=== PATIENT | male | born 1965 | race Caucasian/White ===

== ENCOUNTER 2019-06-25 08:45 | Outpatient (RCR) | payer OTHER, SELFPAY ==
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
--- NOTE | 2019-06-02 11:22 | PCPTNOTE ---
Patient called & cancelled scheduled appointment this date stating he was unable to make it.
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
--- NOTE | 2019-07-03 18:02 | PCPTNOTE ---
Patient did not show up for scheduled appointment this date. Called patient to establish appt times. Did not speak with patient directly.
--- NOTE | 2019-07-09 14:30 | PCPTNOTE ---
Patient did not show up for scheduled appointment this date, called registered phone number letting roommate know about missed appointment and when he's next appointment is scheduled.
--- NOTE | 2019-07-16 10:23 | PCPTNOTE ---
Patient did not show up for scheduled appointment this date. Per attendance policy, patient will be discharged.
--- NOTE | 2019-07-16 10:23 | PCPTNOTE ---
PHYSICAL THERAPY DISCHARGE NOTE Attending Provider: Viviana Storm, Patient:Anderson Byrd Jr. Date of :1965 Patient has not returned for any further treatments since 06/25/2019, therefore he will be discharged from therapy at this time. His last re-evaluation was on 06/25/2019. He participated in 8 physical therapy visits prior to 06/25/2019 and has since no showed 3 appointments. The goals have been partially achieved. Thank you for referring this patient to [facility]. Please review, sign, date and return this discharge summary NAHUM. I have been updated about the patient's current status and I agree with discharge from the above service at this time. Referring Physician Date
== END 2019-07-16 12:19 | disposition home or self-care (01) ==
LOC: ANHPT 08:45
PROVIDERS: Visit Provider Family Medicine
DX: M54.2 Cervicalgia (principal)
CPT/HCPCS: 97014; 97110; 97140; 97162; G0283

== ENCOUNTER 2019-12-10 11:09 | Outpatient (CLI) | payer OTHER, SELFPAY ==
--- NOTE | ~2019-12-10 | XR_ITS ---
EXAMINATION: XR lumbar spine 2-3V EXAM DATE: 12/10/2019 11:48 INDICATION: Chronic low back pain. TECHNIQUE: Lumber spine frontal, lateral, lateral L5-S1 projections for interpretation. Comparison is made to prior examination from 03/30/2015. FINDINGS: There is minimal thoracic disc disease from L3 through S1. There is mild to moderate mid a nd lower lumbar facet arthropathy. No endplate erosive change. No spondylolysis. The vertebral bodies are aligned in the AP dimension. Vertebral body heights are maintained. Sacrum, sacroiliac joints, s acral arcuate lines are intact. Paraspinal soft tissue is unremarkable. IMPRESSION: 1. Mild to moderate lumbar facet arthropathy. 2. Mild disc disease. Reviewed, dictated and finalized at location A.
--- NOTE | ~2019-12-10 | XR_ITS ---
EXAMINATION: XR thoracic spine 3V EXAM DATE: 12/10/2019 11:47 INDICATION: Thoracic pain. TECHNIQUE: Frontal and lateral projections of the thoracic spine as well as lateral swimmers projecti on of the upper thoracic spine for interpretation. Comparison is made to prior examination from 03/30. FINDINGS: There is mild mid and lower thoracic disc disease. No endplate erosive change. The vertebr al bodies are aligned in the AP dimension. Paraspinal soft tissue is unremarkable. IMPRESSION: Mild thoracic disc disease. Reviewed, dictated and finalized at location A. IMPRESSION: Mild thoracic disc disease.
--- NOTE | ~2019-12-10 | XR_ITS ---
EXAMINATION: XR_CERV2-3V_CR EXAM DATE: 12/10/2019 11:47 INDICATION: Chronic back pain, chronic neck pain. TECHNIQUE: Cervical spine frontal, lateral, open-mouth odontoid projections. There is no prior stud y for comparison. FINDINGS: Mild midcervical disc disease. The vertebral body and disc heights are otherwise well maint ained. The vertebral bodies are aligned in the AP dimension. Mild to moderate cervical facet and unco vertebral joint arthropathy. There may be some neural foraminal stenosis at C6-7. The odontoid proces s is intact. The lateral masses of C1 line up with C2. Prevertebral soft tissue and pre-dens space a re within normal limits. Lung apices unremarkable. IMPRESSION: Mild cervical disc disease, mild to moderate arthropathy. Reviewed, dictated and finalized at location A.
== END 2019-12-10 11:10 | disposition home or self-care (01) ==
LOC: ANHIMG 11:20
PROVIDERS: PCP Family Medicine; Visit Provider Family Medicine
DX: M51.36 Other intervertebral disc degeneration, lumbar region (principal); M51.34 Other intervertebral disc degeneration, thoracic region; M50.30 Other cervical disc degeneration, unspecified cervical region
CPT/HCPCS: 72040; 72072; 72100

== ENCOUNTER 2020-04-23 07:05 | Outpatient (NON) | payer OTHER, SELFPAY ==
[2020-04-24 00:19] LABS: SARS-CoV-2 RNA PCR Negative
== END 2020-04-23 07:06 ==
LOC: ANHCOVIDDT 07:29
PROVIDERS: PCP Family Medicine; Visit Provider Family Medicine
DX: Z20.828 Contact with and (suspected) exposure to other viral communicable diseases (principal); R09.89 Other specified symptoms and signs involving the circulatory and respiratory systems
CPT/HCPCS: 87635; C9803; U0003

== ENCOUNTER 2020-07-21 10:13 | Outpatient (CLI) | payer OTHER, SELFPAY ==
--- NOTE | ~2020-07-21 | XR_ITS ---
EXAMINATION: XR_CERV2-3V_CR EXAM DATE: 07/21/2020 10:30 INDICATION: Chronic neck pain, pain down right arm. TECHNIQUE: Cervical spine frontal, lateral, lateral swimmers, and open-mouth odontoid projections. C omparison is made to prior examination from 12/10/2019. FINDINGS: Mild diffuse cervical disc disease. The vertebral bodies are aligned in the AP dimension. Vertebral body heights are maintained. The odontoid process is intact. The lateral masses of C1 line up with C2. Prevertebral soft tissue and pre-dens space are within normal limits. There is mild cerv icothoracic levoscoliosis. Evidence of mild to moderate cervical arthropathy, causing some lower cerv ical neural foraminal stenosis. Lung apices unremarkable. The soft tissue is unremarkable. IMPRESSION: 1. Mild to moderate cervical arthropathy, mild disc disease. 2. Mild cervicothoracic levoscoliosis. Reviewed, dictated and finalized at location A. CAL DOSIMETRIST
== END 2020-07-21 10:14 | disposition home or self-care (01) ==
LOC: ANHIMG 10:17
PROVIDERS: PCP Family Medicine; Visit Provider Family Medicine
DX: M54.2 Cervicalgia (principal); M47.812 Spondylosis without myelopathy or radiculopathy, cervical region; M50.90 Cervical disc disorder, unspecified, unspecified cervical region; M41.83 Other forms of scoliosis, cervicothoracic region
CPT/HCPCS: 72040

== ENCOUNTER 2021-02-23 09:59 | Outpatient (CLI) | payer OTHER, SELFPAY ==
--- NOTE | 2021-02-23 11:00 | NEURO_ITS ---
PATIENT NUMBER: [id number] IMPRESSION: # Complains of right upper extremity pain and numbness. # No Carpal tunnel syndrome. # Normal needle exam. # Clinical correlation is recommended. Higher involvement needs to be ruled out. Nerve Conduction Studies Anti Sensory Summary Table Stim Site NR Peak (ms) P-T Amp (?V) Site1 Site2 Delta-P (ms) Dist (cm) Cornelius (m/s) Right Median Anti Sensory (2-3nd Digit) Wrist 3.4 26.2 Wrist 2-3nd Digit 3.4 14.0 41 Wrist 3.2 25.9 Wrist 2-3nd Digit 3.4 14.0 41 Right Radial Anti Sensory (Base 1st Digit) Wrist 2.2 10.0 Wrist Base 1st Digit 2.2 0.0 Right Ulnar Anti Sensory (5th Digit) Wrist 2.8 89.3 Wrist 5th Digit 2.8 14.0 50 Motor Summary Table Stim Site NR Onset (ms) O-P Amp (mV) Site1 Site2 Delta-0 (ms) Dist (cm) Cornelius (m/s) Right Median Motor (Abd Poll Brev) Wrist 3.1 6.1 Elbow Wrist 5.5 30.0 55 Elbow 8.6 4.1 Right Ulnar Motor (Abd Dig Minimi) Wrist 2.7 5.9 A Elbow Wrist 5.3 31.0 58 A Elbow 8.0 4.5 F Wave Studies NR F-Lat (ms) L-R F-Lat (ms) Right Median (Mrkrs) (Abd Poll Brev) 29.69 Right Ulnar (Mrkrs) (Abd Dig Min) 29.61 EMG Side Muscle Nerve Root Ins Act Fibs Amp Dur Recrt Comment Right 1stDorInt Ulnar C8-T1 Nml Nml Nml Nml Nml Right Ext Indicis Radial (Post Int) C7-8 Nml Nml Nml Nml Nml Right Ext Digitorum Radial (Post Int) C7-8 Nml Nml Nml Nml Nml Right BrachioRad Radial C5-6 Nml Nml Nml Nml Nml Right PronatorTeres Median C6-7 Nml Nml Nml Nml Nml Right Abd Poll Brev Median C8-T1 Nml Nml Nml Nml Nml Right Deltoid Axillary C5-6 Nml Nml Nml Nml Nml Right Triceps Radial C6-7-8 Nml Nml Nml Nml Nml Right Abd Poll Long Radial (Post Int) C7-8 Nml Nml Nml Nml Nml Right ABD Dig Min Ulnar C8-T1 Nml Nml Nml Nml Nml Right Biceps Musculocut C5-6 Nml Nml Nml Nml Nml MTDD
== END 2021-02-23 10:00 | disposition home or self-care (01) ==
PROVIDERS: PCP Family Medicine; Visit Provider Family Medicine
DX: R20.0 Anesthesia of skin (principal); R20.2 Paresthesia of skin; M54.2 Cervicalgia
CPT/HCPCS: 95886; 95909

== ENCOUNTER 2022-07-06 00:16 | Observation (INO) | payer OTHER, SELFPAY ==
[2022-07-06] VITALS (29 sets, daily range): BP systolic 110–212; BP diastolic 63–112; PULSE 42–71; RESP 10–19; TEMP 35.7–36.6; O2SAT 93–100; BMI 27.1
--- NOTE | ~2022-07-06 | CT_ITS ---
EXAMINATION: CT abdomen pelvis w con DATE: 07/06/2022 01:48 INDICATION: Right upper quadrant abdominal pain. TECHNIQUE: Computed tomography (CT) of the abdomen and pelvis was performed with 100 mL Omnipaque 350 intravenous contrast. Automated exposure control and iterative reconstruction technique were employe d. The dose-length product was 596.58 mGy-cm. COMPARISON: None. FINDINGS: The visualized portions of the lung bases demonstrate mild atelectasis. No pleural effusion . The heart size is normal. No pericardial effusion. There is wall thickening of the distal esophagus . The liver is normal. The gallbladder is normal in size. Gallbladder wall thickening is noted. The s pleen, pancreas, adrenal glands, and kidneys are normal. There is diverticulosis of the colon without evidence of diverticulitis. The appendix is normal. There are no dilated loops of bowel. There are n o pathologically enlarged lymph nodes. There is no free intraperitoneal fluid. There is a short disse ction in the left common iliac artery. There is mild thoracolumbar spondylosis. There is mild chronic anterior wedging of multiple thoracic vertebral bodies. IMPRESSION: 1. Gallbladder wall thickening. This finding may be seen with acute or chronic cholecystitis, interst itial edema, or chronic liver disease. 2. Wall thickening of the distal esophagus, likely esophagitis. Reviewed, dictated and finalized at location A. S FINISHER IMPRESSION: 1. Gallbladder wall thickening. This finding may be seen with acute or chronic cholecystitis, interstitial edema, or chronic liver disease. 2. Wall thickening of the distal esophagus, likely esophagitis.
--- NOTE | 2022-07-06 00:36 | ECG_ITS ---
Measurements Intervals [place] Rate: 47 P: 54 IA: 166 QRS: 11 QRSD: 88 T: 34 QT: 437 QTc: 390 Interpretive Statements SINUS BRADYCARDIA NO PREVIOUS ECG AVAILABLE FOR COMPARISON Electronically Signed On 07-06-2022 14:52:14 CMO by Joaquina Amaral M.D.
[2022-07-06] MEDS: SODIUM CHLORIDE 0.9% IV 1,000 ML 999 ML IV CONT (01:09)
--- NOTE | 2022-07-06 01:12 | ED.ABDPAIN ---
HPI - Abdominal Pain General Chief Complaint: Abdominal Pain <VIJAYA Magdaleno Last Filed: 07/06/22 04:59> Stated Complaint: ABD Pain <VIJAYA Magdaleno Last Filed: 07/06/22 04:59> Time Seen by Provider: 07/06/22 00:38 <VIJAYA Magdaleno Last Filed: 07/06/22 04:59> Source: patient <VIJAYA Magdaleno Last Filed: 07/06/22 04:59> Mode of arrival: ambulatory <VIJAYA Magdaleno Last Filed: 07/06/22 04:59> Limitations: no limitations <VIJAYA Magdaleno Last Filed: 07/06/22 04:59> History of Present Illness HPI narrative: Patient is a 56 y/o male who presents to the ED via EMS with report of right upper quadrant abdominal pain. Patient reports he went golfing yesterday morning and felt fine. He developed pain in his right upper quadrant around noon after eating a few chocolate chip cookies. He felt like he needed to belch or pass gas. He took Tums, Pepto-Bismol without relief. He did not try any Tylenol or ibuprofen. Pain persisted and woke him up from sleep, which prompted his presentation. No radiation of pain. He does report some nausea, but denies vomiting, diarrhea, constipation, rectal bleeding, fevers, urinary symptoms, chest pain, pleuritic pain, difficulty breathing. He has never had pain like this before. <VIJAYA Magdaleno Last Filed: 07/06/22 04:59> Related Data Allergies/Adverse Reactions: Allergies Allergy/AdvReac Type Severity Reaction Status Date / Time No Known Allergies Allergy Verified 07/06/22 08:16 <VIJAYA Magdaleno Last Filed: 07/06/22 04:59> Review of Systems Review of Systems: CONSTITUTIONAL: Denies fever, chills, or sweats. CARDIOVASCULAR: Denies chest pain. RESPIRATORY: Denies dyspnea. GASTROINTESTINAL: See HPI. GENITOURINARY: Denies dysuria or hematuria. <Arabella Alcantara PA-C Last Filed: 07/06/22 04:59> All systems reviewed & are unremarkable except as noted in HPI and below <Arabella Alcantara PA-C Last Filed: 07/06/22 04:59> PMFSH Past Medical History Medical History: Medical History Acute cholecystitis Iliac dissection No pertinent past medical history Overweight (BMI 25.0-29.9) Smoker <Arabella Alcantara PA-C Last Filed: 07/06/22 04:59> Surgical History Surgical History: Surgical History No pertinent past surgical history <Arabella Alcantara PA-C Last Filed: 07/06/22 04:59> Family History Family History: Family History Father Cancer Sibling Parkinsons <Arabella Alcantara PA-C Last Filed: 07/06/22 04:59> Social History Social History: Social History Smoking packs per day: 1 Smoking cigarettes per day: 20.0 Smoking status: Current every day smoker Tobacco type: cigarettes Alcohol intake: current Drinks per week: 3 Substance use: current Substance use type: marijuana Lack of Transportation: No Lack of Food: Never True Current Housing: I Have Housing Concerned About Future Housing: No Difficulty Paying Gas/Electric Bills: No Difficulty Paying for Meds: No Currently Unemployed: No Education: High School Diploma/GED Difficulty w/ Childcare or Family Care: No Spiritual care concerns: No <VIJAYA Magdaleno Last Filed: 07/06/22 04:59> Exam Narrative: GENERAL: Well appearing, well-nourished, non-toxic, in no acute distress. HEAD: Normocephalic, atraumatic. NECK: Supple. No adenopathy, no masses. RESPIRATORY: Airway patent, respirations nonlabored. Clear to auscultation bilaterally, no rales, rhonchi, wheezing. CARDIOVASCULAR: Regular rate and rhythm without murmurs, rubs, or gallops. Peripheral pulses 2+ and equal bilaterally. ABDOMINAL: Soft, focal tenderness in right upper quadrant. No
[2022-07-06 01:17] LABS: Basophils Absolute Auto 0.1 K/mm3 (0.0-0.1); Basophils Percent Auto 0.9 % (0.2-1.2); Eosinophils Absolute Auto 0.5 K/mm3 (0-0.3); Eosinophils Percent Auto 4.6 % (0-4.4); Hematocrit 43.6 % (42.0-52.0); Hemoglobin 14.7 g/dL (14.0-18.0); Immature Granulocyte Absolute 0.03 K/mm3 (0.00-0.031); Immature Granulocyte Percent A 0.3 % (0-0.5); Lymphocytes Absolute Auto 4.02 K/mm3 (0.9-3.2); Lymphocytes Percent Auto 36.9 % (18.3-44.2); Mean Corpuscular HGB Conc 33.7 g/dl (32-36); Mean Corpuscular Hemoglobin 30.9 pg (26-34); Mean Corpuscular Volume 91.6 fl (80-100); Mean Platelet Volume 10.5 fl (7.4-10.4); Monocytes Percent Auto 9.5 % (2.6-8.5); Neutrophils Absolute Auto 5.2 K/mm3 (1.3-6.7); Neutrophils Percent Auto 47.8 % (45.5-73.1); Platelet Count Result 291 k/mm3 (150-375); Red Blood Count 4.76 M/mm3 (4.6-6.20); Red Cell Distribution Width 12.2 % (11.5-14.5); White Blood Count 10.9 K/mm3 (4.5-10.0)
[2022-07-06 01:28] LABS: Lipase 97 U/L (23-300)
[2022-07-06 01:29] LABS: Mucus Urine Rare /lpf; RBC Urine 0-2 /hpf (0-2); WBC Urine 0-3 /hpf
[2022-07-06 01:30] LABS: Appearance Urine Clear (Clear); Bilirubin Urine Negative (Negative); Blood Urine Negative (Negative); Color Urine Yellow (Yellow); Glucose Urine UA Negative (Negative); Ketones Urine Negative (Negative); Leukocyte Esterase Ur Negative LEU/UL (Negative); Nitrate Urine Negative (Negative); Protein Urine Negative (Negative); Urobilinogen Urine 0.2 mg/dL (<2.0)
[2022-07-06 01:32] LABS: Add Urine Microscopic? NO
[2022-07-06 01:33] LABS: Alanine Aminotransferase 25 U/L (6-50); Albumin Level 4.9 g/dL (3.5-5.1); Alkaline Phosphatase 75 U/L (38-126); Anion Gap 6 mmol/L (8-16); Aspartate Amino Transferase 28 U/L (17-59); Bilirubin,Total 0.6 mg/dL (0.2-1.3); Blood Urea Nitrogen 13 mg/dL (9-20); Carbon Dioxide 31 mmol/L (22-30); Chloride 101 mmol/L (98-107); Estimated CRCL calculation 59 ml/min; Estimated Glomerular Filt Rate 57; Glucose 106 mg/dL (65-110); Potassium 3.3 mmol/L (3.4-5.0); Sodium 138 mmol/L (137-145)
[2022-07-06] MEDS: ONDANSETRON INJ 4 MG/2 ML VIAL IV PUSH ×2 (02:29→11:18)
[2022-07-06] MEDS: MORPHINE SULFATE (*CRX) 4 MG/ML INJ IV PUSH ×3 (02:30→11:50)
[2022-07-06] MEDS: POTASSIUM CHLORIDE 20 MEQ TABLET 40 MEQ PO (04:27)
[2022-07-06 04:51] LABS: Partial Thromboplastin Time 35.5 SECONDS (22.3-36.8)
[2022-07-06 06:20] LABS: Influenza A QL RT-PCR Negative (Negative); Influenza B QL RT-PCR Negative (Negative); SARS-CoV-2 RNA PCR Negative
--- NOTE | 2022-07-06 06:21 | PC.NURSE ---
Patient arrived on 3 Med-Surg at 05:57
--- NOTE | 2022-07-06 07:38 | PM.IMHP ---
H&P: HPI History of Present Illness Date/Time: 07/06/22 07:38 Chief Complaint: acute cholecystitis Narrative: The pt is a 56 y/o M presenting to ED c/o severe RUQ pain. Pt reports episode started acutely at noon yesterday. Pt reports pain progressively worsened throughout the day and eventually became constant, sharp. Pt reports he could not get comfortable and could not sleep. Pt reports assoc nausea, bloating, cramping, poor appetite. Pt denies previous episodes. Review of Systems Constitutional: Constitutional: Reports as per HPI, Reports anorexia, Denies chills, Denies fatigue, Denies fever(s), Denies lethargy, Denies malaise, Reports poor appetite, Denies weakness, Denies weight gain and Denies weight loss Eyes: Eyes: Reports no additional eye complaints ENT: Reports system reviewed and no additional complaints, except as documented Cardiovascular: Cardiovascular: Reports no additional cardiovascular complaints Respiratory: Respiratory: Reports no additional respiratory complaints Gastrointestinal: Gastrointestinal: Reports as per HPI, Reports abdominal pain, Reports belching, Reports bloating, Reports GI cramping, Reports early satiety, Reports dyspepsia, Reports heartburn, Denies loose stools, Reports nausea, Denies vomiting and Denies hematemesis Genitourinary: Genitourinary: Reports no additional male genitourinary complaints Musculoskeletal: Musculoskeletal: Reports no additional musculoskeletal complaints Integumentary/Breasts: Skin/Breast: Reports system reviewed and no additional complaints, except as docu Neurologic: Reports system reviewed and no additional complaints, except as documented Psychiatric: Psychiatric: Reports no additional psychiatric complaints Endocrine: Endocrine: Reports no additional endocrine complaints Hematologic/Lymphatic: Hematologic/Lymphatic: Reports no additional hematologic/lymphatic complaints Allergic/Immunologic: Allergic/Immunologic: Reports no additional allergic/immunologic complaints [facility] Past Medical History Medical History No pertinent past medical history Surgical History Surgical History No pertinent past surgical history Family History Family History Father Cancer Sibling Parkinsons Social History Social History Smoking packs per day: 1 Smoking cigarettes per day: 20.0 Smoking status: Current every day smoker Tobacco type: cigarettes Alcohol intake: current Drinks per week: 3 Substance use: current Substance use type: marijuana Lack of Transportation: No Lack of Food: Never True Current Housing: I Have Housing Concerned About Future Housing: No Difficulty Paying Gas/Electric Bills: No Difficulty Paying for Meds: No Currently Unemployed: No Education: High School Diploma/GED Difficulty w/ Childcare or Family Care: No Spiritual care concerns: No Meds Home Medications and Allergies Home Medications Medication Instructions Recorded Confirmed Type No Home Medications 07/06/22 07/06/22 History Allergies Allergy/AdvReac Type Severity Reaction Status Date / Time No Known Allergies Allergy Verified 07/06/22 06:11 Vital Signs Vital Signs - 24 hr 07/06/22 00:20 07/06/22 00:36 07/06/22 00:47 Temperature 36.1 C L Pulse Rate 43 L 49 L 49 L Respiratory Rate 16 16 13 Blood Pressure 181/111 H 182/105 H 147/97 H Pulse Oximetry 99 97 96 Oxygen Delivery Room Air 07/06/22 00:48 07/06/22 01:10 07/06/22 01:19 Temperature Pulse Rate 48 L 46 L 46 L Respiratory Rate 15 16 13 Blood Pressure Pulse Oximetry 97 98 96 Oxygen Delivery 07/06/22 01:20 07/06/22 01:21 07/06/22 01:30 Temperature Pulse Rate 52 L 50 L 42 L Respiratory Rate 12 12 15 Blood Pressure 163/9
--- NOTE | 2022-07-06 07:47 | WPDHPUPDATE1 ---
History and Physical Update Update Date/Time: 07/06/22 07:47 History and Physical has been reviewed, including an updated exam of the patient. There are NO changes in the patient's condition. Risks, benefits, and alternatives have been discussed and questions answered. Patient agrees to proceed with procedure.
--- NOTE | 2022-07-06 08:01 | WPDANESEPPF ---
Anes - Initial Pre Proc Eval Procedure: Operation Date: 07/06/22 09:00 Proposed Procedures p Laparoscopic Cholecystectomy - Ary Neri MD Date/Time: 07/06/22 08:01 Surgeon: Ary Neri MD Pre Op Diagnosis: Acute Cholecystitis Patient Data Age: 56 Gender: M Height: 1.78 m Weight: 85.6 kg Last Vital Signs Temp 36.1 C L 07/06/22 00:20 Pulse 52 L 07/06/22 03:02 Resp 12 07/06/22 03:02 BP 138/80 07/06/22 03:02 Pulse Ox 93 07/06/22 03:02 O2 Del Method Room Air 07/06/22 07:26 Allergies Allergy/AdvReac Type Severity Reaction Status Date / Time No Known Allergies Allergy Verified 07/06/22 06:11 Home Medications Medication Instructions Recorded Confirmed Type No Home Medications 07/06/22 07/06/22 History Laboratory Tests 07/06/22 07/06/22 07/06/22 01:10 01:10 01:10 WBC 10.9 K/mm3 H K/mm3 (4.5-10.0) RBC 4.76 M/mm3 M/mm3 (4.6-6.20) Hgb 14.7 g/dL g/dL (14.0-18.0) Hct 43.6 % % (42.0-52.0) MCV 91.6 fl fl (80-100) MCH 30.9 pg pg (26-34) MCHC 33.7 g/dl g/dl (32-36) RDW 12.2 % % (11.5-14.5) Plt Count 291 k/mm3 k/mm3 (150-375) MPV 10.5 fl H fl (7.4-10.4) Immature Gran % (Auto) 0.3 % % (0-0.5) Neut % (Auto) 47.8 % % (45.5-73.1) Lymph % (Auto) 36.9 % % (18.3-44.2) [place] % (Auto) 9.5 % H % (2.6-8.5) Eos % (Auto) 4.6 % H % (0-4.4) Baso % (Auto) 0.9 % % (0.2-1.2) Lymph # (Auto) 4.02 K/mm3 H K/mm3 (0.9-3.2) [place] # (Auto) 1.0 K/mm3 H K/mm3 (0.1-0.6) Eos # (Auto) 0.5 K/mm3 H K/mm3 (0-0.3) Baso # (Auto) 0.1 K/mm3 K/mm3 (0.0-0.1) Abs Immat Gran (auto) 0.03 K/mm3 K/mm3 (0.00-0.031) Absolute Neuts (auto) 5.2 K/mm3 K/mm3 (1.3-6.7) Absolute Nucleated RBC 0.0 K/mm3 K/mm3 (0.0-0.012) Nucleated RBC % 0.0 % % (0.0-0.2) PT INR APTT Sodium 138 mmol/L mmol/L (137-145) Potassium 3.3 mmol/L L mmol/L (3.4-5.0) Chloride 101 mmol/L mmol/L (98-107) Carbon Dioxide 31 mmol/L H mmol/L (22-30) Anion Gap 6 mmol/L L mmol/L (8-16) BUN 13 mg/dL mg/dL (9-20) Creatinine 1.30 mg/dL mg/dL (0.7-1.3) Estim Creat Clear Calc 59 ml/min ml/min Estimated GFR 57 L (59 - ) Glucose 106 mg/dL mg/dL (65-110) Calcium 10.0 mg/dL mg/dL (8.4-10.2) Total Bilirubin 0.6 mg/dL mg/dL (0.2-1.3) AST 28 U/L U/L (17-59) ALT 25 U/L U/L (6-50) Alkaline Phosphatase 75 U/L U/L (38-126) Total Protein 8.0 g/dL g/dL (6.3-8.2) Albumin 4.9 g/dL g/dL (3.5-5.1) Lipase 97 U/L U/L (23-300) Urine Color Urine Appearance Urine pH Ur Specific [place] Urine Protein Urine Glucose (UA) Urine Ketones Ur Blood (Man) Urine Nitrate Urine Bilirubin Urine Urobilinogen Leukocyte Esterase Rfl Urine RBC Urine WBC Urine Mucus Influenza A (RT-PCR) Influenza B (RT-PCR) SARS-CoV-2 RNA (RT-PCR) 07/06/22 07/06/22 07/06/22 01:17 04:30 05:31 WBC RBC Hgb Hct MCV MCH MCHC RDW Plt Count MPV Immature Gran % (Auto) Neut % (Auto) Lymph % (Auto) [place] % (Auto) Eos % (Auto) Baso % (Auto) Lymph # (Auto) [place] # (Auto) Eos # (Auto) Baso # (Auto) Abs Immat Gran (auto) Absolu
[2022-07-06] MEDS: LACTATED RINGERS 1,000 ML 30 ML IV CONT ×2 (08:10→09:45)
[2022-07-06] MEDS: BUPIVACAINE/EPINEPHRINE 0.5% 10 ML VIAL 30 ML INFILTRATE (09:17)
--- NOTE | 2022-07-06 09:48 | P.OP_ITS ---
Procedure Note - Detailed Date of Procedure 07/06/22 Pre-op Diagnosis Acute Cholecystitis Post-op Diagnosis Same Procedure Performed Laparoscopic cholecystectomy Surgeon Ary Neri MD Anesthesia General Indications 56-year-old male presented to the emergency department complaining of right upper quadrant abdominal pain . Workup, including imaging, significant for acute cholecystitis. Findings acute cholecystitis Description of Procedure The patient was taken to the operating room placed in the supine position. After adequate induction of general anesthesia, the patient was prepped and draped in normal sterile fashion. A time-out was then performed to verify the patient's identity as well as the procedure being performed. I then made a 5 mm incision in the infraumbilical region. Through this, a Veress needle was placed into the peritoneal cavity and CO2 gas was then insufflated. After adequate pneumoperitoneum was achieved, the Veress needle was removed and a 5 mm optiview trocar was placed through this incision under direct visualization. I then placed the laparoscope through this trocar site and under direct visualization placed a further 12 mm subxiphoid port as well as 2 additional 5 mm ports in the right upper abdomen. The gallbladder was then identified and was noted to be inflamed and distended. I was able to place a grasper at the dome of the gallbladder and this was retracted anterior and cephalad up over the liver. A 2nd retractor was then placed at the infundibulum and retracted laterally, this allowed visualization of the triangle of Calot. I then was able to visualize the cystic duct in its entirety from its proximal insertion into the gallbladder, to its distal junction with the common hepatic/common bile duct junction. At this point, I carefully skeletonized the proximal cystic duct with the [place] dissector. I then clipped and transected the proximal cystic duct. Next I visualized the cystic artery. Again the artery was skeletonized, clip ped, and transected. I then used the Bovie cautery to take down the peritoneal attachments of the gallbladder off the liver bed. This was somewhat difficult given the amount of inflammation in the posterior space. Once the gallbladder specimen was completely detached, an endo-pouch was placed through the 12 mm port site. I then placed the gallbladder specimen into the Endo pouch and removed the endo-pouch from the 12 mm port site. The specimen will now be sent to pathology for further review. I then copiously irrigated the right upper quadrant. Some mild oozing was noted in the liver bed and this was controlled with the bovie cautery. Hemostasis was noted in the liver bed, the clips were noted to be in good position on both the cystic duct stump and the cystic artery stump. No other pathology was noted in the right upper quadrant. I then moved the laparoscope to the subxiphoid port. No iatrogenic injury or other pathology was noted in the lower abdomen. I then closed the 12 mm trocar site under direct visualization using the Christiano cone and 0 Vicryl suture. At this point, the abdomen was desufflated and all ports removed. All port sites were then closed with 4.O Monocryl subcuticular sutures. Dermabond was placed on each incision. The patient tolerated the procedure well, was extubated in the operating room postoperative and will be transferred to the recovery room in stable condition Estimated Blood Loss 10 Drains No Packing No Pathology Yes Complications No immediate complications Condition Stable Disposition PACU [facility] Billing Surgery - Charge Forward: Surgery Billing
--- NOTE | 2022-07-06 09:54 | PC.NURSE ---
To OR per bed, IV saline locked. Report given to JASON Durant.
[2022-07-06] MEDS: fentaNYL CITRATE INJ (*CRX) 100 MCG/2 ML VIAL 25 MCG IV PUSH ×4 (10:02→10:45)
[2022-07-06] MEDS: hydrALAZINE HCL 20 MG/ML VIAL 10 MG IV PUSH (10:18)
--- NOTE | 2022-07-06 11:12 | PM.CNCAR ---
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 Recommend ASA 81mg once daily and statin when acceptable to start from a surgical standpoint. Has elevated blood pressures this morning, but no diagnosis of HTN. Elevated BP may be due to acute illness/pain. Reassess blood pressure once acute issues improve and treat as accordingly. Check A1c, TSH, and lipid panel. He needs to stop smoking. Consider nicotine patches. Outpatient Vascular Surgery followup for left common iliac artery dissection. Otherwise, no other inpatient cardiology evaluation at this time. He can follow-up with us as an outpatient. Cardiology will sign off. History of Present Illness History of Present Illness Consult date/time: 07/06/22 11:12 Requesting physician: Nile Wren MD Consult reason: Other (Iliac dissection) Reason For Visit: Acute Cholecystitis Narrative: This is a 56-year-old male with no significant past medical history who presented with severe RUQ abdominal pain that started acutely yesterday. Found to have acute cholecystitis and underwent laparoscopic cholecystectomy today. On the CT scan done on presentation, it also showed a short dissection in the left common iliac artery. Patient with good peripheral pulses. No s/s of acute limb ischemia. ER did discuss with [facility], who advised that this is a common chronic incidental finding seen on scans. Does not require urgent vascular evaluation or treatment. He advised that this is typically treated like atherosclerosis. Cardiology consulted for further management. Patient noted to be hypertensive this morning, but denies any history of hypertension prior to this admission. Review of Systems Review of Systems: 12 point ROS obtained. Negative, unless stated in HPI. [facility] Past Medical History Medical History Acute cholecystitis Iliac dissection No pertinent past medical history Overweight (BMI 25.0-29.9) Smoker Surgical History Surgical History No pertinent past surgical history Family History Family History Father Cancer Sibling Parkinsons Social History Social History Smoking packs per day: 1 Smoking cigarettes per day: 20.0 Smoking status: Current every day smoker Tobacco type: cigarettes Alcohol intake: current Drinks per week: 3 Substance use: current Substance use type: marijuana Lack of Transportation: No Lack of Food: Never True Current Housing: I Have Housing Concerned About Future Housing: No Difficulty Paying Gas/Electric Bills: No Difficulty Paying for Meds: No Currently Unemployed: No Education: High School Diploma/GED Difficulty w/ Childcare or Family Care: No Spiritual care concerns: No Meds Home Medications and Allergies Home Medications Medication Instructions Recorded Confirmed Type No Home Medications 07/06/22 07/06/22 History hydrocodone 5 mg-acetaminophen 325 1 tablet PO Q6H PRN pain #30 tabs 07/06/22 Rx mg tablet Allergies Allergy/AdvReac Type Severity Reaction Status Date / Time No Known Allergies Allergy Verified 07/06/22 08:16 Vital Signs Vital Signs - 24 hr 07/06/22 00:20 07/06/22 00:36 07/06/22 00:47 Temperature 36.1 C L Pulse Rate 43 L 49 L 49 L Respiratory Rate 16 16 13 Blood Pressure 181/111 H 182/105 H 147/97 H Pulse Oximetry 99 97 96 Oxygen Delivery Room Air Oxygen Flow Rate
--- NOTE | 2022-07-06 12:21 | PC.NURSE ---
Returned from OR per bed at 1105. Report received from JASON Amaya.
[2022-07-06 12:42] LABS: Cholesterol 235 mg/dL (0-200); HDL Direct 57 mg/dL; LDL Cholesterol Direct 129 mg/dL; Triglycerides 126 mg/dL (<150)
[2022-07-06 13:28] LABS: Hemoglobin A1C 5.4 % (<5.7)
[2022-07-06] MEDS: HYDROcodone/acetaminophen (*CRX) 5-325 MG TABLET 1 TAB PO (17:21)
--- NOTE | 2022-07-07 09:20 | PM.DS ---
DS: Admitting Diagnosis Discharge Date 07/06/22 Admitting Diagnosis acute cholecystitis DS: Discharge Diagnosis Discharge Diagnosis (1) Acute cholecystitis: Code(s): K81.0 - Acute cholecystitis Status: Acute Assessment and Plan: status post laparoscopic cholecystectomy, routine postoperative care, home with p.o. 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 Workup in the emergency department, including imaging, was significant for acute cholecystitis. Given these findings, the patient was admitted to the surgical service and started on IV antibiotics. Upon evaluation, the decision was made for urgent cholecystectomy. The patient was taken to the operating room and laparoscopic cholecystectomy was performed, please see full operative report for details of that procedure. Postoperatively, the patient did well was transferred back to the surgical floor. He was able to tolerate a diet and his pain was well controlled with p.o. analgesia. The patient was up and ambulating without difficulty. He will now be discharged home with instructions for routine postoperative care and p.o. analgesia. He will follow up with me in 2 weeks. Status at Discharge Functional status at discharge: independent ambulation Overall status at discharge: patient is progressing back to baseline Time Spent with Patient Time attestation: Total time spent providing and/or coordinating discharge services: Time spent: Less than 30 minutes Exam Const: General: cooperative, comfortable and no acute distress Resp: Auscultation: clear to auscultation bilaterally Cardio: Rate: regular rate Rhythm: regular rhythm GI: Inspection: normal to inspection, distended and incision GI Palp: Yes abdominal tenderness, Yes Soft to palpation, Yes Tenderness to palpation present (GI), No Guarding due to palpation present (GI) and No Rigid due to palpation DS: Data Data Completed and Pending Pending studies at discharge: Pending at discharge 07/06/22 09:23 Surgical [PTH] Routine Labs on day of discharge: Labs from last 24 hours 07/06/22 07/06/22 11:48 11:48 Hemoglobin A1c 5.4 Triglycerides 126 Cholesterol 235 H LDL Cholesterol Direct 129 HDL Direct 57 TSH 3.670 Discharge Plan Discharge Attending physician on discharge: Ary Neri Consulting providers: Neida Taylor ; Arabella Alcantara Discharging Clinician: Ary Neri Anticipated Discharge Date/Time: 07/06/22 14:00 Patient Disposition: Home, Self-Care Activity: other - see discharge instructions Diet: other - see discharge instructions Wound Care Instructions: other - see discharge instructions Discharge Instructions: DISCHARGE INSTRUCTION SHEET FOR HERNIA, GALLBLADDER AND APPENDIX SURGERIES DR. NERI PATIENT TO TAKE HOME 1. May shower in 24 hours, no soaking in bath x 2weeks. 2. Call office for: Wound increasingly painful or bleeding Vomiting Fever of greater than 101 degrees 3. If no bowel movement for three days, take 1 oz. (30 ml) Milk of Magnesia or MiraLax 17g 1 to 2 times daily. 4. No heavy lifting > 10-15 pounds x 6 weeks for hernia repairs and 2 weeks for laparoscopic cholecystectomy or appendectomy. 5. No driving for 3 days or while taking narcotic pain medications. 6. Ice to surgical site for 48 hours (30 min
== END 2022-07-06 17:35 | disposition home or self-care (01) ==
LOC: ANHED 04:41 → ANH3MEDSUR 05:37
PROVIDERS: Internal Medicine; Admitting Provider Surgery; Emergency Provider Physician Assistant; PCP Family Medicine; Visit Provider Surgery
PROC: 0FT44ZZ Resection of Gallbladder, Percutaneous Endoscopic Approach (ICD-10-PCS; CPT 47562; principal; 2022-07-06 09:00)
DX: K80.12 Calculus of gallbladder with acute and chronic cholecystitis without obstruction (principal); D13.5 Benign neoplasm of extrahepatic bile ducts; I77.72 Dissection of iliac artery; I70.202 Unspecified atherosclerosis of native arteries of extremities, left leg; F17.210 Nicotine dependence, cigarettes, uncomplicated; Z20.822 Contact with and (suspected) exposure to COVID-19
CPT/HCPCS: 47562; 36415; 74177; 80053; 80061; 81003; 83036; 83690; 84443; 85025; 85610; 85730; 87636; 88304; 93005; 96361; 96365; 96375; 96376; 99285; A9270; G0378; G0379; J0131; J0360; J1100; J1170; J2250; J2270; J2405; J2543; J2704; J2710; J3010; J7030; J7120; Q9967

== ENCOUNTER 2022-08-05 14:37 | Emergency (ER) | payer OTHER, SELFPAY ==
[2022-08-05 14:42] VITALS: BP 130/106; PULSE 88; RESP 16; TEMP 36.4; O2SAT 100
--- NOTE | 2022-08-05 16:15 | ED.GENADULT ---
HPI - General Adult General Chief complaint: Fever Stated complaint: concern for SJS Time Seen by Provider: 08/05/22 15:48 History of Present Illness HPI narrative: Patient is a 57-year-old male presenting with a rash. Patient states that he developed URI symptoms earlier this week. States that his temperature was between 101-102 ?F. States that he called his PCP who called in some TheraFlu. States that he started taking that over the last couple of days. States that he then developed a couple of red patches on his face. He googled side effects of TheraFlu and saw Cain-Adolfo syndrome. 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 States he has stopped taking the TheraFlu. States that his URI symptoms have very much improved. States that these patches are sometimes itchy. Denies blistering or skin sloughing. Denies headache, chest pain, shortness of breath, abdominal pain, nausea or vomiting, diarrhea, leg swelling, dysuria. Related Data Allergies Allergy/AdvReac Type Severity Reaction Status Date / Time No Known Allergies Allergy Verified 07/21/22 09:45 Review of Systems Review of Systems: All systems reviewed & are unremarkable except as noted in HPI and below PMFSH Past Medical History Medical History Acute cholecystitis Iliac dissection No pertinent past medical history Overweight (BMI 25.0-29.9) Smoker Surgical History Surgical History No pertinent past surgical history Family History Family History Father Cancer Sibling Parkinsons Social History Social History Smoking packs per day: 1 Smoking cigarettes per day: 20.0 Smoking status: Current every day smoker Tobacco type: cigarettes Alcohol intake: current Drinks per week: 3 Substance use: current Substance use type: marijuana Lack of Transportation: No Lack of Food: Never True Current Housing: I Have Housing Concerned About Future Housing: No Difficulty Paying Gas/Electric Bills: No Difficulty Paying for Meds: No Currently Unemployed: No Education: High School Diploma/GED Difficulty w/ Childcare or Family Care: No Spiritual care concerns: No Exam Narrative: GENERAL: Well-appearing, well-nourished, and in no acute distress. HEAD: Normocephalic, atraumatic. EYES: PERRLA and EOMI. ENT: Nares clear, no rhinorrhea or epistaxis. Mucous membranes moist. NECK: Supple. CHEST: Clear to auscultation. No respiratory distress. HEART: Regular rate and rhythm. ABDOMEN: Soft, nontender, nondistended EXTREMITIES: Normal range of motion. No edema. SKIN: Warm, dry, several urticarial lesions on the patient's face, no tenderness, no blistering, no skin sloughing, no lesions appreciated elsewhere NEURO: No focal deficits. Alert and oriented x3. PSYCH: Normal mood and affect. Course Vital Signs Vital signs: Vital Signs Temperature 97.6 F 08/05/22 14:42 Pulse Rate 88 08/05/22 14:42 Respiratory Rate 16 08/05/22 14:42 Blood Pressure 130/106 H 08/05/22 14:42 Pulse Oximetry 100 08/05/22 14:42 Oxygen Delivery Room Air 08/05/22 14:42 Temperature 97.6 F 08/05/22 14:42 Pulse Rate 85 08/05/22 16:47 Respiratory Rate 16 08/05/22 16:47 Blood Pressure 126/97 H 08/05/22 16:47 Pulse Oximetry 100 08/05/22 16:47 Oxygen Delivery Room Air 08/05/22 14:42 Medical Decision Making MDM Narrative Medical decision making narrative: 57-year-old male presenting with rash on his face in the setting of using TheraFlu. Vitals are within normal limits. Patient is well-appearing and in no acute distress. Exam is remarkable for several urticarial-like lesions on his face, largest one is on his forehead. There is no associated tenderness. No evidence of cellulitis or infection. No skin sloughing or blistering. I am not concern
[2022-08-05 16:47] VITALS: BP 126/97; PULSE 85; RESP 16; O2SAT 100
== END 2022-08-05 16:48 | disposition home or self-care (01) ==
PROVIDERS: Emergency Provider Emergency Medicine; PCP Family Medicine
DX: L50.9 Urticaria, unspecified (principal)
CPT/HCPCS: 99281

== ENCOUNTER 2022-12-23 18:44 | Emergency (ER) | payer OTHER, SELFPAY ==
[2022-12-23 18:45] VITALS: BP 142/86; PULSE 74; RESP 18; TEMP 36.5; O2SAT 97
[2022-12-23] MEDS: KETOROLAC 30 MG/ML VIAL (*BKC) 15 MG IM (19:38)
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
== END 2022-12-23 19:55 | disposition home or self-care (01) ==
PROVIDERS: Emergency Provider Emergency Medicine; PCP Family Medicine
DX: H72.91 Unspecified perforation of tympanic membrane, right ear (principal); E66.3 Overweight; Z68.27 Body mass index [BMI] 27.0-27.9, adult; F17.210 Nicotine dependence, cigarettes, uncomplicated
CPT/HCPCS: 96372; 99283; J1885

== ENCOUNTER 2023-02-22 06:38 | Emergency (ER) | payer OTHER, SELFPAY ==
[2023-02-22] VITALS (12 sets, daily range): BP systolic 135–143; BP diastolic 82–96; PULSE 50–63; RESP 12–29; TEMP 36.6; O2SAT 95–99
--- NOTE | ~2023-02-22 | XR_ITS ---
Clinical Indication: Shortness of breath PA and lateral views of the chest: Comparison: None Findings: The lungs are clear, without evidence of focal consolidation or pleural effusion. Cardiome diastinal silhouette is within normal limits. Bones and soft tissues are unremarkable. Impression: Normal chest. Reviewed, dictated and finalized at [facility]. Impression: Normal chest.
--- NOTE | ~2023-02-22 | CT_ITS ---
Clinical Indication: Traumatic left chest pain CT Scan of the Chest with Contrast: Technique: Contiguous sections were acquired throughout the chest after intravenous administration of 75 cc of Omnipaque 350. Dose reduction technique was used on this scan by utilizing automated exposu re control and iterative reconstruction technique. The dose-length product (DLP) was 172.13 mGy-cm. Findings: There is no evidence of any significant mediastinal, hilar or axillary lymphadenopathy. No large cent ral pulmonary embolus identified. There is no evidence of aortic dissection or aneurysm. There is no evidence of pleural or pericardial effusion. The lungs are clear. No pulmonary nodules or infiltrates are noted. Images through the upper abdomen reveal no abnormalities. No rib fracture identified. Impression: No significant abnormality identified. Reviewed, dictated and finalized at [facility]. Impression: No significant abnormality identified.
--- NOTE | 2023-02-22 06:39 | ECG_ITS ---
Measurements Intervals Ten Sleep Rate: 50 P: 33 ME: 155 QRS: 20 QRSD: 87 T: 31 QT: 441 QTc: 403 Interpretive Statements SINUS BRADYCARDIA COMPARED TO ECG 07/06/2022 00:50:57 NO SIGNIFICANT CHANGES Electronically Signed On 02-22-2023 12:45:47 CDT by Joaquina Amaral M.D.
[2023-02-22 07:27] LABS: Basophils Absolute Auto 0.1 K/mm3 (0.0-0.1); Basophils Percent Auto 0.6 % (0.2-1.2); Eosinophils Absolute Auto 0.3 K/mm3 (0-0.3); Eosinophils Percent Auto 3.2 % (0-4.4); Hematocrit 42.7 % (42.0-52.0); Hemoglobin 14.3 g/dL (14.0-18.0); Immature Granulocyte Absolute 0.02 K/mm3 (0.00-0.031); Immature Granulocyte Percent A 0.2 % (0-0.5); Lymphocytes Absolute Auto 2.45 K/mm3 (0.9-3.2); Mean Corpuscular HGB Conc 33.5 g/dl (32-36); Mean Corpuscular Hemoglobin 31.3 pg (26-34); Mean Corpuscular Volume 93.4 fl (80-100); Mean Platelet Volume 10.3 fl (7.4-10.4); Monocytes Absolute Auto 0.8 K/mm3 (0.1-0.6); Monocytes Percent Auto 8.8 % (2.6-8.5); Neutrophils Absolute Auto 5.5 K/mm3 (1.3-6.7); Neutrophils Percent Auto 60.2 % (45.5-73.1); Platelet Count Result 296 k/mm3 (150-375); Red Blood Count 4.57 M/mm3 (4.6-6.20); Red Cell Distribution Width 12.2 % (11.5-14.5); White Blood Count 9.1 K/mm3 (4.5-10.0)
[2023-02-22 07:37] LABS: Alanine Aminotransferase 31 U/L (6-50); Albumin Level 4.4 g/dL (3.5-5.1); Alkaline Phosphatase 84 U/L (38-126); Anion Gap 6 mmol/L (8-16); Aspartate Amino Transferase 41 U/L (17-59); Bilirubin,Total 0.8 mg/dL (0.2-1.3); Blood Urea Nitrogen 21 mg/dL (9-20); Calcium 8.9 mg/dL (8.4-10.2); Carbon Dioxide 27 mmol/L (22-30); Chloride 105 mmol/L (98-107); Estimated CRCL calculation 72 ml/min; Estimated Glomerular Filt Rate > 60; Glucose 103 mg/dL (65-110); Potassium 3.8 mmol/L (3.4-5.0); Sodium 138 mmol/L (137-145)
[2023-02-22] MEDS: oxyCODONE/ACETAMINOPHEN (*CRX) 5-325 MG TABLET 1 TABLET PO (09:00)
--- NOTE | 2023-02-22 09:35 | ED.SOB ---
HPI - SOB/Dyspnea General Chief Complaint: Shortness of Breath/Dyspnea Stated Complaint: hard time breathing, ski hit chest on Sunday Time Seen by Provider: 02/22/23 06:57 History of Present Illness HPI Narrative: This is a 57-year-old male, with no significant past medical history, presenting to the emergency department complaining of left anterior chest wall pain for the past 4 days. The patient states he was waterskiing on Sunday, when he fell with the ski striking him in the right chest. Over the past 4 days he has developed worsening, sharp and intermittently dull left anterior chest wall pain, now rated 8/10. Pain is worse with deep breathing, though he denies loss of consciousness. Related Data Allergies Allergy/AdvReac Type Severity Reaction Status Date / Time No Known Allergies Allergy Verified 12/23/22 19:03 Review of Systems Review of Systems: CONSTITUTIONAL: Denies fever, chills, or sweats. CARDIOVASCULAR: Left chest wall pain denies palpitations, or edema. RESPIRATORY: Denies cough or dyspnea. GASTROINTESTINAL: Denies abdominal pain, nausea, vomiting, or diarrhea. GENITOURINARY: Denies dysuria or hematuria. SKIN: Denies rash or itching. MUSCULOSKELETAL: Denies back pain, joint pain, or myalgia. NEUROLOGIC: Denies headache, numbness, dizziness, or weakness. PSYCHIATRIC: Denies anxiety or depression. [facility] Past Medical History Medical History Acute cholecystitis Iliac dissection No pertinent past medical history Overweight (BMI 25.0-29.9) Smoker Surgical History Surgical History No pertinent past surgical history Family History Family History Father Cancer Sibling Parkinsons Social History Social History Smoking packs per day: 1 Smoking cigarettes per day: 20.0 Smoking status: Current every day smoker Tobacco type: cigarettes Alcohol intake: current Drinks per week: 3 Substance use: current Substance use type: marijuana Lack of Transportation: No Lack of Food: Never True Current Housing: I Have Housing Concerned About Future Housing: No Difficulty Paying Gas/Electric Bills: No Difficulty Paying for Meds: No Currently Unemployed: No Education: High School Diploma/GED Difficulty w/ Childcare or Family Care: No Spiritual care concerns: No Exam Narrative: GENERAL: Well-developed, well-nourished, and in no acute distress. HEAD: Normocephalic, atraumatic. EYES: PERRLA and EOMI. CHEST: Clear to auscultation. No respiratory distress. No wheezes rales or rhonchi. Tender to palpation over the anterior left chest, approximately 3 cm below the clavicle. There is no obvious crepitus, contusion or deformity. HEART: Regular rate and rhythm. No murmur heard. Normal peripheral pulses. ABDOMEN: Soft, nontender, nondistended, normal active bowel sounds. EXTREMITIES: Normal range of motion. No edema. SKIN: Warm, dry, no rash. NEURO: Alert and oriented x3. Moving all 4 limbs purposefully. PSYCH: Normal mood and affect. Course Course Emergency Course: 09:30 - X-ray of the chest not concerning for pneumothorax. CT of the chest not concerning for fracture or pulmonary contusion. CBC within normal limits. Chemistries unremarkable. I suspect the patient has a contusion of the anterior chest wall. Will discharge with pain medications. I advised the patient to practice deep breathing to reduce risk of developing pneumonia. Discussed return and emergency cautions including signs/symptoms of ACS and respiratory distress. The patient voiced understanding and is comfortable with the plan. All questions answered to his satisfaction. Vital Signs Vital signs: Vital Signs Temperature 97.8 F 02/22/23 06:40 Pulse Rate 57 L 02/22/23 06:40 Respiratory Rate 20 02/22/23 06:40 Blood Pressure
== END 2023-02-22 09:50 | disposition home or self-care (01) ==
PROVIDERS: Emergency Medicine; Emergency Provider Preventive Medicine Aerospace Medicine; PCP Family Medicine
DX: S20.212A Contusion of left front wall of thorax, initial encounter (principal); E66.3 Overweight; Z68.27 Body mass index [BMI] 27.0-27.9, adult; F17.210 Nicotine dependence, cigarettes, uncomplicated; R00.1 Bradycardia, unspecified; V91.37XA Hit or struck by falling object due to accident to water-skis, initial encounter; Y93.17 Activity, water skiing and wake boarding
CPT/HCPCS: 36415; 71046; 71260; 80053; 85025; 93005; 99284; A9270; Q9967

== ENCOUNTER 2025-01-28 16:23 | Emergency (ER) | payer OTHER, SELFPAY ==
--- NOTE | ~2025-01-28 | XR_ITS ---
Clinical history:Postreduction EXAM:X-ray finger fourth right minimum 2 views TECHNIQUE:2 views of the right fourth digit were obtained. Comparisons:01/28/2025 FINDINGS: Interval reduction of the dislocated right fourth PIP joint which is in anatomic alignment. No fracture identified. Soft tissue swelling about the fourth digit. IMPRESSION: Interval reduction of the dislocated right fourth PIP joint which is in anatomic alignment. No fracture identified. Soft tissue swelling about the fourth digit. Reviewed, dictated and finalized at [facility]. IMPRESSION: Interval reduction of the dislocated right fourth PIP joint which is in anatomi c alignment. No fracture identified. Soft tissue swelling about the fourth digit.
--- NOTE | ~2025-01-28 | XR_ITS ---
Clinical history:Fall. Deformity. EXAM:X-ray finger fourth right minimum 2 views TECHNIQUE:3 images of the right fourth digit were obtained. Comparisons:None available FINDINGS: Dislocation of the PIP joint of the fourth digit with adjacent soft tissue swelling. No obvious fracture identified, however, evaluation is limited due to overlapping structures. A follow-up study after reduction is recommended to evaluate for a subtle fracture. IMPRESSION: 1. Dislocation of the PIP joint of the fourth digit with adjacent soft tissue swelling. No obvious fracture identified, however, evaluation is limited due to overlapping structures. A follow-up study after reduction is recommended to evaluate for a subtle fracture. Reviewed, dictated and finalized at [facility]. IMPRESSION: 1. Dislocation of the PIP joint of the fourth digit with adjacent soft tissue swelling. No obvious fracture identified, however, evaluation is limited due t o overlapping structures. A follow-up study after reduction is recommended to e valuate for a subtle fracture.
[2025-01-28 16:24] VITALS: BP 145/91; PULSE 68; RESP 16; TEMP 36.6; O2SAT 98
--- NOTE | 2025-01-28 16:28 | ED.UPPEXIN ---
HPI - Extremity Injury (Upper) General Chief Complaint: Extremity Injury, Upper <Denis Connell APRN - Last Filed: 01/28/25 16:31> Stated Complaint: R FOURTH DIGIT DEFORMITY <Denis Connell APRN - Last Filed: 01/28/25 16:31> Time Seen by Provider: 01/28/25 16:45 <Denis Connell APRN - Last Filed: 01/28/25 16:31> HPI:59-year-old male presents to the ER complaining of right ring finger injury. Patient said about 1 hour ago he was standing on tires at work when the tires went loose knocked him off landing on his right hand. Patient denies in his head, loss of conscious, neck pain, back pain, or any other injuries. Patient is complaining of right ring finger pain. Patient denies any numbness or tingling. Patient has an obvious deformity to his right ring finger.Focused GENERAL: Well-appearing, well-nourished, and in no acute distress. HEAD: Normocephalic, atraumatic. CHEST: Respiratory rate normal, respiratory effort nonlabored, no respiratory distress HEART: Regular rate and rhythm.? NEURO: ?Alert and oriented x3. MSK: Right ring finger: Obvious deformity to 4th digit at the PIP joint. The redness, swelling, bruising. Patient can feel me touch the tip of his right ring finger. Capillary refill less than 2 seconds. Right radial pulse 2 +palpable. Limited range of motion due to deformity. Neurovascular status intact distal to injury. Normal sensation. Patient screened in triage and initial orders placed.? ?Additional care and disposition to be based upon?diagnostic testing and treatment. <Denis Connell APRN - Last Filed: 01/28/25 16:31> History of Present Illness HPI narrative: I agree with the above HPI <Aditya Cardona MD - Last Filed: 01/28/25 18:51> Related Data Allergies/Adverse Reactions: Allergies Allergy/AdvReac Type Severity Reaction Status Date / Time No Known Allergies Allergy Verified 12/23/22 19:03 <Denis Connell APRN - Last Filed: 01/28/25 16:31> Review of Systems Review of Systems: All systems reviewed & are unremarkable except as noted in HPI and below <Aditya Cardona MD - Last Filed: 01/28/25 18:51> PMFSH Past Medical History Medical History: Medical History Acute cholecystitis Iliac dissection No pertinent past medical history Overweight (BMI 25.0-29.9) Smoker <Denis Connell APRN - Last Filed: 01/28/25 16:31> Surgical History Surgical History: Surgical History No pertinent past surgical history <Denis Connell APRN - Last Filed: 01/28/25 16:31> Family History Family History: Family History Father Cancer Sibling Parkinsons <Denis Connell APRN - Last Filed: 01/28/25 16:31> Social History Social History: Social History Smoking packs per day: 1 Smoking cigarettes per day: 20.0 Smoking status: Current every day smoker Tobacco type: cigarettes Alcohol intake: current Drinks per week: 3 Substance use: current Substance use type: marijuana Lack of Transportation: No Lack of Food: Never True Current Housing: I Have Housing Concerned About Future Housing: No Difficulty Paying Gas/Electric Bills: No Difficulty Paying for Meds: No Currently Unemployed: No Education: High School Diploma/GED Difficulty w/ Childcare or Family Care: No Spiritual care concerns: No <Denis Connell APRN - Last Filed: 01/28/25 16:31> Exam Narrative: APPEARANCE: Well appearing, no pain, no distress, well-nourished. HEAD: normocephalic, atraumatic. EYES: PERRLA/EOMI, conjunctivae clear. RESPIRATORY: Airway patent, respirations nonlabored. Clear to auscultation bilaterally, no rales, rhonchi, wheezing. CARDIOVASCULAR: Regular rate and rhythm without murmurs rubs or gallops. ABDOMINAL: Soft, nontender, nondistended, normal bowel sounds MUSCULOSKELETAL: deformity of right 4th finger, neurovascular intact after reduction NEURO: Alert. Cranial nerves II through XII intact. Good gait. Good coordination SKIN: Warm, dry. Normal Color <Aditya Cardona MD - Last Filed: 01/28/25 18:51> Course Vital Signs Vital signs: Vital Signs Temperature 97.9 F 01/28/25 16:24 Pulse Rate 68 01/28/25 16:24 Respiratory Rate 16 01/28/25 16:24 Blood Pressure 145/91 H 01/28/25 16:24 Pulse Oximetry 98 01/28/25 16:24 Oxygen Delivery Room Air 01/28/25 16:24 Temperature 97.9 F 01/28/25 16:24 Pulse Rate 68 01/28/25 16:24 Respiratory Rate 16 01/28/25 16:43 Blood Pressure 145/91 H 01/28/25 16:24 Pulse Oximetry 96 01/28/25 16:43 Oxygen Delivery Room Air 01/28/25 16:24 <Denis Connell APRN - Last Filed: 01/28/25 16:31> Vital Signs Temperature 97.9 F 01/28/25 16:24 Pulse Rate 68 01/28/25 16:24 Respiratory Rate 16 01/28/25 16:24 Blood Pressure 145/91 H 01/28/25 16:24 Pulse Oximetry 98 01/28/25 16:24 Oxygen Delivery Room Air 01/28/25 16:24 Temperature 97.9 F 01/28/25 16:24 Pulse Rate 68 01/28/25 16:24 Respiratory Rate 16 01/28/25 16:43 Blood Pressure 145/91 H 01/28/25 16:24 Pulse Oximetry 96 01/28/25 16:43 Oxygen Delivery Room Air 01/28/25 16:24 <Aditya Cardona MD - Last Filed: 01/28/25 18:51> Procedures Orthopedic Joint Reduction Joint #1: Orthopedic Joint Reduction Date: 01/28/25 <Aditya Cardona MD - Last Filed: 01/28/25 18:51> Orthopedic Joint Reduction Time: 16:53 <Aditya Cardona MD - Last Filed: 01/28/25 18:51> Time Out Performed: Yes <Aditya Cardona MD - Last Filed: 01/28/25 18:51> Side: right <Aditya Cardona MD - Last Filed: 01/28/25 18:51> Joint Reduction Location: finger <Aditya Cardona MD - Last Filed: 01/28/25 18:51> Analgesia: none <Aditya Cardona MD - Last Filed: 01/28/25 18:51> Pre-Procedure Neuro Vascular Exam: normal <Aditya Cardona MD - Last Filed: 01/28/25 18:51> Technique used: direct manipulation <Aditya Cardona MD - Last Filed: 01/28/25 18:51> Post-reduction neuro exam: intact <Aditya Cardona MD - Last Filed: 01/28/25 18:51> Post-reduction vascular: intact <Aditya Cardona MD - Last Filed: 01/28/25 18:51> Post Reduction X-Ray Obtained: Yes <Aditya Cardona MD - Last Filed: 01/28/25 18:51> Post Reduction X-Ray Results: reduced <Aditya Cardona MD - Last Filed: 01/28/25 18:51> Splint Applied: Yes <Aditya Cardona MD - Last Filed: 01/28/25 18:51> Patient Tolerated Procedure: well and no complications <Aditya Cardona MD - Last Filed: 01/28/25 18:51> MDM - Extremity Injury (Upper) MDM Narrative Medical decision making narrative: 59-year-old male presents emergency department for evaluation for a dislocation of his right 4th finger. X-ray showed dislocation but no fracture. Patient's finger was able to be reduced after IV pain medications. Patient felt significantly improved after reduction. Patient was neurovascularly intact. Repeat x-ray shows no acute fracture. Patient was provided a splint for comfort courage to have close follow-up with Hand. All questions concerns were addressed. Patient was well-appearing at time of discharge. <Aditya Cardona MD - Last Filed: 01/28/25 18:51> Differential Diagnosis Differential diagnosis: Likely other ( Finger fracture, finger dislocation finger strain) <Aditya Cardona MD - Last Filed: 01/28/25 18:51> Imaging Data Radiologist's impression: Impressions Finger X-Ray 01/28/25 16:51 IMPRESSION: 1. Dislocation of the PIP joint of the fourth digit with adjacent soft tissue swelling. No obvious fracture identified, however, evaluation is limited due to overlapping structures. A follow-up study after reduction is recommended to evaluate for a subtle fracture. Finger X-Ray 01/28/25 17:07 IMPRESSION: Interval reduction of the dislocated right fourth PIP joint which is in anatomic alignment. No fracture identified. Soft tissue swelling about the fourth digit. <Aditya Cardona MD - Last Filed: 01/28/25 18:51> Discharge Plan Discharge Clinical Impression: Dislocated finger <Denis Connell APRN - Last Filed: 01/28/25 16:31> Patient Disposition: Home <Denis Connell APRN - Last Filed: 01/28/25 16:31> Condition: Stable <Denis Connell APRN - Last Filed: 01/28/25 16:31> Instructions: Antibiotic Form, Finger Dislocation (ED) <Denis Connell APRN - Last Filed: 01/28/25 16:31> Additional Instructions: Wear the finger splint for comfort for 2 weeks. Have close follow-up with hand. Tylenol and ibuprofen for pain control. If you have any worsening symptoms then please call or return to the emergency department. <Denis Connell APRN - Last Filed: 01/28/25 16:31> Patient Language: Vietnamese <Denis Connell APRN - Last Filed: 01/28/25 16:31> Prescriptions: No Action amoxicillin-pot clavulanate 875-125 mg tablet 1 tablet PO Q12H Qty: 10 0RF ibuprofen 400 mg tablet 400 mg PO TID PRN (Reason: Pain, Severe) Qty: 14 0RF acetaminophen [Tylenol] 325 mg capsule 650 mg PO ONCE PRN (Reason: pain) Qty: 30 0RF lidocaine 5 % adhesive patch,medicated 1 patch topical DAILY Qty: 30 0RF Rx Instructions: leave on most painful area for up to 12 hrs hydrocodone-acetaminophen 5-325 mg tablet 1 tablet PO Q6H PRN (Reason: pain) Qty: 30 0RF <Denis Connell APRN - Last Filed: 01/28/25 16:31> Follow-up/Referrals: Abrahan Boogie MD [Physician, Plastic Surgery] Luis F Cui MD [Primary Care Provider, Family Practice] <Denis Connell APRN - Last Filed: 01/28/25 16:31>
[2025-01-28] MEDS: fentaNYL CITRATE INJ (*CRX) 100 MCG/2 ML VIAL 50 MCG IV PUSH (16:36)
[2025-01-28 16:43] VITALS: RESP 16; O2SAT 96
[2025-01-28] MEDS: ONDANSETRON INJ 4 MG/2 ML VIAL IV PUSH (16:59)
[2025-01-28] MEDS: HYDROmorphone HCL INJ (*CRX) 1 MG/ML SYR IV PUSH (17:00)
[2025-01-28] MEDS: HYDROcodone/acetaminophen (*CRX) 5-325 MG TABLET 1 TAB PO (17:53)
--- NOTE | 2025-01-28 17:59 | PC.NURSE ---
pt did not want all of the dilaudid ordered. pt was given 0.5mg and asked to not have the rest, 2 RN verification for waste was done
== END 2025-01-28 18:01 | disposition home or self-care (01) ==
LOC: ANHED 17:34
PROVIDERS: Emergency Provider Emergency Medicine; PCP Family Medicine
DX: S63.284A Dislocation of proximal interphalangeal joint of right ring finger, initial encounter (principal); F17.210 Nicotine dependence, cigarettes, uncomplicated; W17.89XA Other fall from one level to another, initial encounter
CPT/HCPCS: 26770; 73140; 96374; 96375; 99285; A9270; J1171; J2405; J3010

== ENCOUNTER 2025-02-04 16:13 | Outpatient (CLI) | payer OTHER, SELFPAY ==
[2025-02-04 16:54] LABS: Hematocrit 40.8 % (42.0-52.0); Hemoglobin 13.6 g/dL (14.0-18.0); Mean Corpuscular HGB Conc 33.3 g/dl (32-36); Mean Corpuscular Hemoglobin 30.8 pg (26-34); Mean Corpuscular Volume 92.3 fl (80-100); Platelet Count Result 287 k/mm3 (150-375); Red Blood Count 4.42 M/mm3 (4.6-6.20); White Blood Count 10.5 K/mm3 (4.5-10.0)
[2025-02-04 17:11] LABS: Alanine Aminotransferase 25 U/L (6-50); Albumin Level 4.5 g/dL (3.5-5.1); Alkaline Phosphatase 80 U/L (38-126); Anion Gap 7 mmol/L (4-12); Aspartate Amino Transferase 36 U/L (17-59); Bilirubin,Total 0.3 mg/dL (0.2-1.3); Blood Urea Nitrogen 25 mg/dL (9-20); Calcium 8.9 mg/dL (8.4-10.2); Carbon Dioxide 26 mmol/L (22-30); Chloride 107 mmol/L (98-107); Cholesterol 202 mg/dL (0-200); Estimated Glomerular Filt Rate > 60; Glucose 93 mg/dL (65-110); HDL Direct 72 mg/dL; Potassium 3.6 mmol/L (3.4-5.0); Sodium 140 mmol/L (137-145); Total Protein 7.5 g/dL (6.3-8.2); Triglycerides 99 mg/dL (<150)
[2025-02-04 17:29] LABS: Hemoglobin A1C 5.5 % (<5.7)
[2025-02-04 17:40] LABS: Free T4 Free Thyroxine 1.11 ng/dL (0.78-2.19)
[2025-02-04 17:46] LABS: Prostate Specific Antigen 0.5 ng/mL (< OR = 4.0); Thyroid Stimulating Hormone 1.300 uIU/mL (0.465-4.680)
== END 2025-02-04 16:14 | disposition home or self-care (01) ==
LOC: ANHLAB 16:17
PROVIDERS: PCP Family Medicine; Visit Provider Nurse Practitioner Family
DX: Z13.220 Encounter for screening for lipoid disorders (principal); Z13.89 Encounter for screening for other disorder; Z13.1 Encounter for screening for diabetes mellitus; Z13.29 Encounter for screening for other suspected endocrine disorder; Z11.59 Encounter for screening for other viral diseases; Z13.21 Encounter for screening for nutritional disorder; Z12.5 Encounter for screening for malignant neoplasm of prostate
CPT/HCPCS: 36415; 80053; 80061; 82306; 83036; 84153; 84439; 84443; 85027; 86803; G0103

== ENCOUNTER 2025-05-06 06:55 | Outpatient (CLI) | payer OTHER, SELFPAY ==
[2025-05-06 07:25] LABS: Hematocrit 43.3 % (42.0-52.0); Hemoglobin 14.4 g/dL (14.0-18.0); Mean Corpuscular HGB Conc 33.3 g/dl (32-36); Mean Corpuscular Hemoglobin 31.1 pg (26-34); Mean Corpuscular Volume 93.5 fl (80-100); Platelet Count Result 282 k/mm3 (150-375); Red Blood Count 4.63 M/mm3 (4.6-6.20); White Blood Count 7.9 K/mm3 (4.5-10.0)
[2025-05-06 07:47] LABS: Hemoglobin A1C 5.7 % (<5.7)
[2025-05-06 07:48] LABS: Alanine Aminotransferase 22 U/L (6-50); Albumin Level 4.4 g/dL (3.5-5.1); Alkaline Phosphatase 66 U/L (38-126); Anion Gap 6 mmol/L (4-12); Aspartate Amino Transferase 29 U/L (17-59); Bilirubin,Total 0.8 mg/dL (0.2-1.3); Blood Urea Nitrogen 24 mg/dL (9-20); Calcium 9.5 mg/dL (8.4-10.2); Carbon Dioxide 29 mmol/L (22-30); Chloride 106 mmol/L (98-107); Estimated Glomerular Filt Rate > 60; Glucose 108 mg/dL (65-110); Magnesium 2.0 mg/dL (1.6-2.3); Potassium 4.6 mmol/L (3.4-5.0); Sodium 141 mmol/L (137-145); Total Protein 7.5 g/dL (6.3-8.2)
[2025-05-06 08:24] LABS: Prostate Specific Antigen 0.6 ng/mL (< OR = 4.0); Thyroid Stimulating Hormone 2.160 uIU/mL (0.465-4.680)
[2025-05-06 09:00] LABS: Vitamin B12 315.0 pg/mL (239-931)
[2025-05-06 10:43] LABS: Free T4 Free Thyroxine 0.90 ng/dL (0.78-2.19)
[2025-05-06 11:11] LABS: Total Triiodothyronine (T3) 1.11 NG/ML (0.82-1.58)
[2025-05-09 13:08] LABS: Free Testosterone (Direct) 14.8 pg/mL (7.2-24.0)
== END 2025-05-06 06:56 | disposition home or self-care (01) ==
LOC: ANHLAB 06:57
PROVIDERS: PCP Nurse Practitioner Family; Visit Provider Nurse Practitioner Family
DX: Z13.29 Encounter for screening for other suspected endocrine disorder (principal); Z13.220 Encounter for screening for lipoid disorders; Z13.1 Encounter for screening for diabetes mellitus; Z12.5 Encounter for screening for malignant neoplasm of prostate; N52.9 Male erectile dysfunction, unspecified; Z13.89 Encounter for screening for other disorder
CPT/HCPCS: 36415; 80053; 82306; 82607; 82746; 83036; 83735; 84153; 84402; 84403; 84439; 84443; 84480; 85027; G0103